=== PATIENT | female | born 1950 | race Caucasian/White ===

== ENCOUNTER 2022-12-05 15:19 | Inpatient (IN) | payer MEDICARE ==
[2022-12-05 16:54] LABS: #Basophils 0.1 10x3/uL (0.0-0.2); #Eosinphils 0.3 10x3/uL (0.0-0.5); #Monocytes 0.9 10x3/uL (0.0-1.1); #Neutrophils 8.3 10x3/uL (1.5-8.4); %Basophils 0.8 % (0.0-2.0); %Eosinophils 2.8 % (0.0-6.0); %Lymphocytes 16.1 % (18.0-47.0); Hematocrit 29.7 % (34.9-44.5); Hemoglobin 9.2 g/dL (12.0-15.5); Mean Corpuscular Hemoglobin 29.2 pg (27.0-33.0); Mean Corpuscular Volume 94.3 fl (81.6-98.3); Mean Platelet Volume 9.6 fl (7.4-10.4); Platelet Count 448 10x3/uL (150-450); RBC Distribution Width 14.9 % (11.5-14.5); Red Blood Cell (RBC) Count 3.15 10x6/uL (3.90-5.03); White Blood Cell (WBC) Count 11.6 10x3/uL (3.5-10.5)
[2022-12-05] MEDS ORDERED: Vancomycin 1 GM VIAL ONE (17:05)
[2022-12-05] MEDS ORDERED: Cefepime 2 GM VIAL ONE (17:05)
[2022-12-05] MEDS ORDERED: hydrALAZINE 20 MG/ML VIAL ONE (17:05)
[2022-12-05] MEDS ORDERED: Vancomycin HCl 500 MG VIAL ONE (17:06)
[2022-12-05 17:11] LABS: Anion Gap 21 mmol/L (10-20); BUN (Urea Nitrogen) 92 mg/dL (9.8-20.1); Calc. Creatinine Clearance 0 mL/min (70-130); Calcium 9.4 mg/dL (7.8-10.44); Carbon Dioxide 13 mmol/L (23-31); Chloride 111 mmol/L (98-107); Estimated GFR 5; Glucose 159 mg/dL (83-110); Potassium 4.8 mmol/L (3.5-5.1); Sodium 140 mmol/L (136-145)
[2022-12-05] MEDS ORDERED: Vancomycin 1.5 GRAM/300 ML BAG 1.5 GM in Premix Bag 1 BAG IVPB SCH (17:15)
[2022-12-05] MEDS ORDERED: Dextrose 5% in Water 1,000 ML IV PRN (17:31)
[2022-12-05] MEDS ORDERED: HumaLOG 300 UNITS/3 ML VIAL SC PRN (17:31)
[2022-12-05] MEDS ORDERED: Dextrose 50% Abboject 50 ML SYRINGE SLOW IVP PRN (17:31)
[2022-12-05] MEDS ORDERED: Glucagon 1 MG/ML KIT IM PRN (17:31)
[2022-12-05] MEDS ORDERED: Morphine 4 MG/ML VIAL ONE (18:35)
[2022-12-05] MEDS ORDERED: Morphine 2 MG/ML VIAL ONE (18:35)
[2022-12-05 22:26] VITALS: BMI 33.0
[2022-12-05] MEDS: metroNIDAZOLE 500 MG in Premix Bag 1 BAG IVPB SCH (22:54)
[2022-12-05] MEDS: Heparin 5,000 UNITS/ML VIAL SC SCH (22:55)
[2022-12-05] MEDS: hydrALAZINE 20 MG/ML VIAL SLOW IVP PRN (22:55)
[2022-12-05] MEDS: Morphine 4 MG/ML VIAL SLOW IVP PRN (23:27)
[2022-12-05] MEDS ORDERED: Vancomycin Dose by Levels Sliding Scale (Wt 71-99) FS SCH (23:45)
[2022-12-06] MEDS: Ondansetron PF 4 MG/2 ML Vial IVP PRN ×3 (00:19→14:21)
[2022-12-06] MEDS: Acetaminophen 325 MG TAB PO PRN ×2 (00:26→08:29)
[2022-12-06 04:18] LABS: #Basophils 0.1 10x3/uL (0.0-0.2); #Eosinphils 0.2 10x3/uL (0.0-0.5); #Monocytes 0.9 10x3/uL (0.0-1.1); #Neutrophils 9.4 10x3/uL (1.5-8.4); %Basophils 0.6 % (0.0-2.0); %Eosinophils 1.9 % (0.0-6.0); %Monocytes 6.9 % (0.0-10.0); Hematocrit 28.5 % (34.9-44.5); Hemoglobin 8.7 g/dL (12.0-15.5); Mean Corpuscular HGB CONC 30.5 g/dL (32.0-36.0); Platelet Count 425 10x3/uL (150-450); White Blood Cell (WBC) Count 12.6 10x3/uL (3.5-10.5)
[2022-12-06 04:35] LABS: Anion Gap 21 mmol/L (10-20); BUN (Urea Nitrogen) 94 mg/dL (9.8-20.1); Calc. Creatinine Clearance 9 mL/min (70-130); Calcium 9.2 mg/dL (7.8-10.44); Carbon Dioxide 12 mmol/L (23-31); Chloride 112 mmol/L (98-107); Estimated GFR 5; Glucose 142 mg/dL (83-110); Potassium 5.4 mmol/L (3.5-5.1); Sodium 140 mmol/L (136-145)
[2022-12-06] MEDS: metroNIDAZOLE 500 MG in Premix Bag 1 BAG IVPB SCH ×3 (05:54→23:58)
[2022-12-06] MEDS: Carvedilol 12.5 MG TAB PO SCH ×2 (08:29→18:11)
[2022-12-06] MEDS: Heparin 5,000 UNITS/ML VIAL SC SCH ×2 (08:52→21:20)
[2022-12-06] MEDS ORDERED: Heparin 10,000 UNITS/ 10 ML VIAL FS PRN (10:32)
[2022-12-06] MEDS ORDERED: Vancomycin Diaylsis Sliding Scale (Wt 71-99) FS SCH (10:45)
[2022-12-06] MEDS ORDERED: Tuberculin PPD 0.1 ML VIAL I-DERMAL SCH ×2 (11:00→23:59)
[2022-12-06 11:20] LABS: Vancomycin, Random 20.5 ug/mL (See Comment)
[2022-12-06] MEDS: EPOETIN ALFA-EPBX (ESRD) 4,000 UNITS/ML VIAL SC SCH (14:22)
[2022-12-06] MEDS ORDERED: EPINEPHrine 1 MG/ML AMP ONE (14:49)
[2022-12-06] MEDS ORDERED: Bupivacaine 0.25% HCL 30 ML VIAL ONE (14:49)
[2022-12-06] MEDS ORDERED: Lidocaine 1% PF 5 ML VIAL ONE (15:14)
[2022-12-06] MEDS ORDERED: Ondansetron PF 4 MG/2 ML Vial ONE ×2 (15:14→17:00)
[2022-12-06] MEDS ORDERED: fentaNYL 50 mcg/mL 1 mL Vial ONE (15:14)
[2022-12-06] MEDS ORDERED: PROPOFOL 20 ML ONE (15:14)
[2022-12-06] MEDS ORDERED: Dexamethasone 20 MG/5 ML VIAL ONE (15:14)
[2022-12-06] MEDS ORDERED: Rocuronium Bromide 10 MG/ML (10ML VIAL) ONE (15:35)
[2022-12-06] MEDS ORDERED: SUGAMMADEX SODIUM 200 MG/2 ML VIAL ONE (15:37)
[2022-12-06] MEDS: hydrALAZINE 20 MG/ML VIAL SLOW IVP PRN (17:49)
[2022-12-06] MEDS ORDERED: Vancomycin HCl 500 MG in Sodium Chloride 0.9% 100 ML IVPB SCH (18:00)
[2022-12-06] MEDS: Cefepime 1 GM in Sodium Chloride 0.9% 100 ML IVPB SCH (18:14)
[2022-12-06] MEDS: Promethazine HCl 12.5 MG in Sodium Chloride 0.9% 50 ML IVPB PRN (21:21)
[2022-12-07 03:47] LABS: #Basophils 0.1 10x3/uL (0.0-0.2); #Monocytes 1.1 10x3/uL (0.0-1.1); #Neutrophils 10.7 10x3/uL (1.5-8.4); %Basophils 0.7 % (0.0-2.0); %Eosinophils 0.1 % (0.0-6.0); %Lymphocytes 12.9 % (18.0-47.0); %Monocytes 7.8 % (0.0-10.0); Hematocrit 28.6 % (34.9-44.5); Hemoglobin 8.5 g/dL (12.0-15.5); Mean Corpuscular HGB CONC 29.7 g/dL (32.0-36.0); Mean Corpuscular Hemoglobin 28.8 pg (27.0-33.0); Mean Corpuscular Volume 96.9 fl (81.6-98.3); Mean Platelet Volume 9.8 fl (7.4-10.4); Platelet Count 406 10x3/uL (150-450); RBC Distribution Width 15.2 % (11.5-14.5); Red Blood Cell (RBC) Count 2.95 10x6/uL (3.90-5.03); White Blood Cell (WBC) Count 13.8 10x3/uL (3.5-10.5)
[2022-12-07 04:09] LABS: Anion Gap 22 mmol/L (10-20); BUN (Urea Nitrogen) 96 mg/dL (9.8-20.1); Calc. Creatinine Clearance 8 mL/min (70-130); Calcium 9.2 mg/dL (7.8-10.44); Carbon Dioxide 11 mmol/L (23-31); Chloride 113 mmol/L (98-107); Estimated GFR 5; Glucose 122 mg/dL (83-110); Potassium 5.6 mmol/L (3.5-5.1); Sodium 140 mmol/L (136-145)
[2022-12-07 04:37] LABS: Hep B Surface AG-Rflx Sendout Negative (Negative); Hepatitis B Core Total Negative (Negative); Hepatitis B Surface AB-Sendout Non Reactive (.)
[2022-12-07] MEDS: Promethazine HCl 12.5 MG in Sodium Chloride 0.9% 50 ML IVPB PRN (06:21)
[2022-12-07] MEDS: metroNIDAZOLE 500 MG in Premix Bag 1 BAG IVPB SCH ×3 (06:40→22:20)
[2022-12-07 07:57] LABS: Vancomycin, Random 23.1 ug/mL (See Comment)
[2022-12-07] MEDS: Heparin 5,000 UNITS/ML VIAL SC SCH ×2 (10:24→20:37)
[2022-12-07] MEDS: Carvedilol 12.5 MG TAB PO SCH ×2 (10:24→15:42)
[2022-12-07] MEDS: hydrALAZINE 25 MG TAB PO SCH ×2 (15:42→20:36)
[2022-12-07] MEDS: traMADol HCl 50 MG TAB PO PRN (16:58)
[2022-12-07] MEDS: Cefepime 1 GM in Sodium Chloride 0.9% 100 ML IVPB SCH (17:15)
[2022-12-07] MEDS: Acetaminophen 325 MG TAB PO PRN (22:25)
[2022-12-08] MEDS: Ondansetron PF 4 MG/2 ML Vial IVP PRN ×2 (00:20→08:32)
[2022-12-08 04:33] LABS: #Basophils 0.1 10x3/uL (0.0-0.2); #Eosinphils 0.3 10x3/uL (0.0-0.5); #Monocytes 1.1 10x3/uL (0.0-1.1); #Neutrophils 9.2 10x3/uL (1.5-8.4); %Eosinophils 2.1 % (0.0-6.0); %Lymphocytes 13.3 % (18.0-47.0); %Monocytes 9.1 % (0.0-10.0); %Neutrophils 73.9 % (40.0-75.0); Hemoglobin 8.7 g/dL (12.0-15.5); Mean Corpuscular HGB CONC 31.1 g/dL (32.0-36.0); Mean Corpuscular Hemoglobin 29.8 pg (27.0-33.0); Mean Corpuscular Volume 95.9 fl (81.6-98.3); Mean Platelet Volume 9.8 fl (7.4-10.4); Platelet Count 340 10x3/uL (150-450); RBC Distribution Width 15.4 % (11.5-14.5); Red Blood Cell (RBC) Count 2.92 10x6/uL (3.90-5.03); White Blood Cell (WBC) Count 12.4 10x3/uL (3.5-10.5)
[2022-12-08 04:55] LABS: Anion Gap 21 mmol/L (10-20); BUN (Urea Nitrogen) 85 mg/dL (9.8-20.1); Calc. Creatinine Clearance 9 mL/min (70-130); Calcium 8.9 mg/dL (7.8-10.44); Carbon Dioxide 14 mmol/L (23-31); Chloride 108 mmol/L (98-107); Estimated GFR 5; Glucose 157 mg/dL (83-110); Potassium 4.8 mmol/L (3.5-5.1); Sodium 138 mmol/L (136-145)
[2022-12-08] MEDS: metroNIDAZOLE 500 MG in Premix Bag 1 BAG IVPB SCH ×3 (05:51→22:15)
[2022-12-08 07:04] LABS: Vancomycin, Random 18.4 ug/mL (See Comment)
[2022-12-08] MEDS: Carvedilol 12.5 MG TAB PO SCH ×2 (08:04→17:15)
[2022-12-08] MEDS: hydrALAZINE 25 MG TAB PO SCH ×3 (09:04→22:16)
[2022-12-08] MEDS ORDERED: READ PPD TEST SITE PO SCH (11:00)
[2022-12-08] MEDS: traMADol HCl 50 MG TAB PO PRN ×2 (14:19→22:36)
[2022-12-08] MEDS ORDERED: Vancomycin HCl 750 MG in Sodium Chloride 0.9% 250 ML 250 ML IVPB SCH (17:00)
[2022-12-08] MEDS: Cefepime 1 GM in Sodium Chloride 0.9% 100 ML IVPB SCH (17:15)
[2022-12-08] MEDS ORDERED: Vancomycin HCl 750 MG VIAL ONE (17:54)
[2022-12-08] MEDS: Heparin 5,000 UNITS/ML VIAL SC SCH ×2 (22:17→22:18)
[2022-12-08] MEDS: READ PPD TEST SITE PO SCH (23:59)
[2022-12-09 05:12] LABS: #Basophils 0.1 10x3/uL (0.0-0.2); #Eosinphils 0.5 10x3/uL (0.0-0.5); #Monocytes 1.4 10x3/uL (0.0-1.1); #Neutrophils 7.1 10x3/uL (1.5-8.4); %Eosinophils 4.5 % (0.0-6.0); %Lymphocytes 16.1 % (18.0-47.0); %Monocytes 12.4 % (0.0-10.0); %Neutrophils 65.3 % (40.0-75.0); Hematocrit 25.3 % (34.9-44.5); Mean Corpuscular HGB CONC 31.6 g/dL (32.0-36.0); Mean Corpuscular Volume 94.8 fl (81.6-98.3); Mean Platelet Volume 10.1 fl (7.4-10.4); Platelet Count 343 10x3/uL (150-450); Red Blood Cell (RBC) Count 2.67 10x6/uL (3.90-5.03); White Blood Cell (WBC) Count 10.9 10x3/uL (3.5-10.5)
[2022-12-09 05:26] LABS: Anion Gap 17 mmol/L (10-20); BUN (Urea Nitrogen) 52 mg/dL (9.8-20.1); Calc. Creatinine Clearance 12 mL/min (70-130); Calcium 8.5 mg/dL (7.8-10.44); Carbon Dioxide 20 mmol/L (23-31); Chloride 105 mmol/L (98-107); Estimated GFR 7; Glucose 115 mg/dL (83-110); Potassium 4.1 mmol/L (3.5-5.1); Sodium 138 mmol/L (136-145)
[2022-12-09] MEDS: metroNIDAZOLE 500 MG in Premix Bag 1 BAG IVPB SCH ×3 (05:57→22:53)
[2022-12-09] MEDS: Morphine 4 MG/ML VIAL SLOW IVP PRN ×2 (06:03→15:38)
[2022-12-09] MEDS: Ondansetron PF 4 MG/2 ML Vial IVP PRN ×2 (06:04→15:38)
[2022-12-09 06:11] LABS: Vancomycin, Random 24.5 ug/mL (See Comment)
[2022-12-09] MEDS: Carvedilol 12.5 MG TAB PO SCH ×2 (08:30→17:00)
[2022-12-09] MEDS: hydrALAZINE 25 MG TAB PO SCH ×3 (08:30→22:54)
[2022-12-09] MEDS: Heparin 5,000 UNITS/ML VIAL SC SCH ×2 (09:00→22:53)
[2022-12-09] MEDS: Cefepime 1 GM in Sodium Chloride 0.9% 100 ML IVPB SCH (17:00)
[2022-12-09] MEDS: Ondansetron ODT 4 MG TAB PO PRN (22:55)
[2022-12-09] MEDS: traMADol HCl 50 MG TAB PO PRN (22:55)
[2022-12-10] MEDS: READ PPD TEST SITE PO SCH ×2 (00:14→23:54)
[2022-12-10 04:35] LABS: #Basophils 0.1 10x3/uL (0.0-0.2); #Eosinphils 0.3 10x3/uL (0.0-0.5); #Monocytes 1.3 10x3/uL (0.0-1.1); #Neutrophils 7.3 10x3/uL (1.5-8.4); %Basophils 0.7 % (0.0-2.0); %Eosinophils 2.8 % (0.0-6.0); %Lymphocytes 15.3 % (18.0-47.0); %Monocytes 12.6 % (0.0-10.0); Hematocrit 27.8 % (34.9-44.5); Hemoglobin 8.3 g/dL (12.0-15.5); Mean Corpuscular HGB CONC 29.9 g/dL (32.0-36.0); Mean Corpuscular Hemoglobin 28.7 pg (27.0-33.0); Mean Corpuscular Volume 96.2 fl (81.6-98.3); Mean Platelet Volume 9.9 fl (7.4-10.4); Platelet Count 356 10x3/uL (150-450); RBC Distribution Width 14.7 % (11.5-14.5); Red Blood Cell (RBC) Count 2.89 10x6/uL (3.90-5.03); White Blood Cell (WBC) Count 10.7 10x3/uL (3.5-10.5)
[2022-12-10 04:41] LABS: Anion Gap 16 mmol/L (10-20); BUN (Urea Nitrogen) 29 mg/dL (9.8-20.1); Calc. Creatinine Clearance 18 mL/min (70-130); Calcium 8.8 mg/dL (7.8-10.44); Carbon Dioxide 24 mmol/L (23-31); Chloride 100 mmol/L (98-107); Estimated GFR 12; Glucose 106 mg/dL (83-110); Potassium 3.7 mmol/L (3.5-5.1); Sodium 136 mmol/L (136-145)
[2022-12-10] MEDS: Ondansetron ODT 4 MG TAB PO PRN ×2 (06:12→11:21)
[2022-12-10] MEDS: metroNIDAZOLE 500 MG in Premix Bag 1 BAG IVPB SCH ×3 (06:12→21:32)
[2022-12-10] MEDS: Morphine 4 MG/ML VIAL SLOW IVP PRN ×3 (06:12→15:25)
[2022-12-10 08:08] LABS: Vancomycin, Random 16.9 ug/mL (See Comment)
[2022-12-10] MEDS: Heparin 5,000 UNITS/ML VIAL SC SCH ×2 (08:41→20:33)
[2022-12-10] MEDS: Ondansetron PF 4 MG/2 ML Vial IVP PRN (08:49)
[2022-12-10] MEDS: hydrALAZINE 25 MG TAB PO SCH ×3 (08:56→20:32)
[2022-12-10] MEDS: traMADol HCl 50 MG TAB PO PRN ×2 (08:57→23:37)
[2022-12-10] MEDS: Carvedilol 12.5 MG TAB PO SCH ×2 (08:57→16:01)
[2022-12-10] MEDS: Promethazine HCl 12.5 MG in Sodium Chloride 0.9% 50 ML IVPB PRN (12:44)
[2022-12-10] MEDS ORDERED: hydrALAZINE 25 MG TAB PO SCH (13:30)
[2022-12-10] MEDS ORDERED: cloNIDine 0.1 MG TAB PO PRN (13:31)
[2022-12-10] MEDS ORDERED: NIFEdipine XL 30 MG TAB PO SCH (13:45)
[2022-12-10] MEDS: Cefepime 1 GM in Sodium Chloride 0.9% 100 ML IVPB SCH (17:48)
[2022-12-11] MEDS: metroNIDAZOLE 500 MG in Premix Bag 1 BAG IVPB SCH ×3 (05:51→21:28)
[2022-12-11] MEDS: traMADol HCl 50 MG TAB PO PRN ×2 (06:04→14:18)
[2022-12-11 07:58] LABS: Vancomycin, Random 14.9 ug/mL (See Comment)
[2022-12-11] MEDS: Carvedilol 12.5 MG TAB PO SCH ×2 (08:43→16:27)
[2022-12-11] MEDS: NIFEdipine XL 30 MG TAB PO SCH (08:43)
[2022-12-11] MEDS: hydrALAZINE 25 MG TAB PO SCH ×3 (08:44→21:29)
[2022-12-11] MEDS: Morphine 4 MG/ML VIAL SLOW IVP PRN ×2 (08:52→16:38)
[2022-12-11] MEDS: Ondansetron ODT 4 MG TAB PO PRN (08:52)
[2022-12-11] MEDS: Acetaminophen 325 MG TAB PO PRN (08:53)
[2022-12-11] MEDS: Heparin 5,000 UNITS/ML VIAL SC SCH ×2 (08:55→21:28)
[2022-12-11] MEDS: Cefepime 1 GM in Sodium Chloride 0.9% 100 ML IVPB SCH (16:25)
[2022-12-11] MEDS ORDERED: Vancomycin HCl 1 GM in Sodium Chloride 0.9% 250 ML 250 ML IVPB SCH (17:00)
[2022-12-12] MEDS: Acetaminophen 325 MG TAB PO PRN ×2 (00:32→09:09)
[2022-12-12] MEDS: READ PPD TEST SITE PO SCH (00:33)
[2022-12-12] MEDS: metroNIDAZOLE 500 MG in Premix Bag 1 BAG IVPB SCH ×3 (05:55→22:08)
[2022-12-12] MEDS: Heparin 5,000 UNITS/ML VIAL SC SCH ×2 (07:59→22:05)
[2022-12-12] MEDS: Carvedilol 12.5 MG TAB PO SCH ×2 (09:05→17:24)
[2022-12-12] MEDS: hydrALAZINE 25 MG TAB PO SCH ×3 (09:06→22:06)
[2022-12-12] MEDS: NIFEdipine XL 30 MG TAB PO SCH (09:06)
[2022-12-12] MEDS ORDERED: PROPOFOL 20 ML ONE (10:31)
[2022-12-12] MEDS ORDERED: Bupivacaine PF 0.5% 30 ML VIAL ONE (10:32)
[2022-12-12] MEDS ORDERED: Lidocaine 2% MPF 10 ML AMP (For Epidural Use) ONE (10:32)
[2022-12-12] MEDS ORDERED: Lidocaine 2% PF 5 ML VIAL ONE (10:34)
[2022-12-12] MEDS ORDERED: Ondansetron PF 4 MG/2 ML Vial ONE (10:34)
[2022-12-12] MEDS ORDERED: Dexamethasone 4 mg/ml Vial ONE (10:34)
[2022-12-12 10:56] LABS: Potassium 3.7 mmol/L (3.5-5.1)
[2022-12-12] MEDS ORDERED: Midazolam HCl 2 mg/2 ml Vial ONE (11:30)
[2022-12-12] MEDS: traMADol HCl 50 MG TAB PO PRN ×2 (14:49→22:05)
[2022-12-12] MEDS: Cefepime 1 GM in Sodium Chloride 0.9% 100 ML IVPB SCH (17:24)
[2022-12-12] MEDS: HumaLOG 300 UNITS/3 ML VIAL SC PRN (18:18)
[2022-12-13] MEDS: READ PPD TEST SITE PO SCH (00:26)
[2022-12-13] MEDS: Acetaminophen 325 MG TAB PO PRN ×2 (00:42→20:34)
[2022-12-13] MEDS: metroNIDAZOLE 500 MG in Premix Bag 1 BAG IVPB SCH ×3 (07:26→20:35)
[2022-12-13 07:39] LABS: Vancomycin, Random 19.3 ug/mL (See Comment)
[2022-12-13 08:13] LABS: Hematocrit 27.8 % (34.9-44.5); Hemoglobin 8.5 g/dL (12.0-15.5); Mean Corpuscular HGB CONC 30.6 g/dL (32.0-36.0); Mean Corpuscular Hemoglobin 29.7 pg (27.0-33.0); Mean Corpuscular Volume 97.2 fl (81.6-98.3); Mean Platelet Volume 9.7 fl (7.4-10.4); Platelet Count 325 10x3/uL (150-450); RBC Distribution Width 14.3 % (11.5-14.5); Red Blood Cell (RBC) Count 2.86 10x6/uL (3.90-5.03); White Blood Cell (WBC) Count 12.2 10x3/uL (3.5-10.5)
[2022-12-13 08:25] LABS: ALT (SGPT) Less than 7 U/L (8-55); AST (SGOT) 19 U/L (5-34); Albumin 2.9 g/dL (3.4-4.8); Alkaline Phosphatase 90 U/L (40-110); Anion Gap 15 mmol/L (10-20); BUN (Urea Nitrogen) 27 mg/dL (9.8-20.1); Bilirubin, Total 0.2 mg/dL (0.2-1.2); Calc. Creatinine Clearance 13 mL/min (70-130); Calcium 8.9 mg/dL (7.8-10.44); Carbon Dioxide 23 mmol/L (23-31); Chloride 103 mmol/L (98-107); Estimated GFR 8; Globulin 3.3 g/dL (2.4-3.5); Glucose 163 mg/dL (83-110); Potassium 3.5 mmol/L (3.5-5.1); Protein, Total 6.2 g/dL (5.8-8.1); Sodium 137 mmol/L (136-145)
[2022-12-13] MEDS: traMADol HCl 50 MG TAB PO PRN ×2 (13:19→23:20)
[2022-12-13] MEDS: Heparin 5,000 UNITS/ML VIAL SC SCH ×2 (13:33→20:33)
[2022-12-13] MEDS: EPOETIN ALFA-EPBX (ESRD) 4,000 UNITS/ML VIAL SC SCH (13:33)
[2022-12-13] MEDS: Carvedilol 12.5 MG TAB PO SCH ×2 (13:33→16:37)
[2022-12-13] MEDS: NIFEdipine XL 30 MG TAB PO SCH (13:34)
[2022-12-13] MEDS: hydrALAZINE 25 MG TAB PO SCH ×2 (13:34→20:33)
[2022-12-13] MEDS: Cefepime 1 GM in Sodium Chloride 0.9% 100 ML IVPB SCH (16:37)
[2022-12-13] MEDS: HumaLOG 300 UNITS/3 ML VIAL SC PRN (16:37)
[2022-12-13] MEDS: Morphine 4 MG/ML VIAL SLOW IVP PRN (23:25)
[2022-12-14] MEDS: metroNIDAZOLE 500 MG in Premix Bag 1 BAG IVPB SCH (06:08)
[2022-12-14] MEDS: Acetaminophen 325 MG TAB PO PRN ×2 (06:16→12:27)
[2022-12-14] MEDS: traMADol HCl 50 MG TAB PO PRN (07:48)
[2022-12-14] MEDS: hydrALAZINE 25 MG TAB PO SCH (07:49)
[2022-12-14] MEDS: Carvedilol 12.5 MG TAB PO SCH (07:49)
[2022-12-14] MEDS: NIFEdipine XL 30 MG TAB PO SCH (07:50)
[2022-12-14] MEDS: Heparin 5,000 UNITS/ML VIAL SC SCH (07:50)
[2022-12-14] MEDS ORDERED: Vancomycin HCl 750 MG in Sodium Chloride 0.9% 250 ML 250 ML IVPB SCH (09:00)
[2022-12-14] MEDS ORDERED: Cephalexin 500 MG CAP PO SCH (12:00)
[2022-12-14 13:29] VITALS: BP 156/67; TEMP 98.7
== END 2022-12-14 13:45 | DRG 617 ==
LOC: CSHERS 15:19 → CSHTELE 20:38
PROVIDERS: ADMIT Family Medicine; ATTEND Internal Medicine
PROC: 0JH63XZ Insertion of Tunneled Vascular Access Device into Chest Subcutaneous Tissue and Fascia, Percutaneous Approach (ICD-10-PCS; principal; 2022-12-06)
PROC: 05HM33Z Insertion of Infusion Device into Right Internal Jugular Vein, Percutaneous Approach (ICD-10-PCS; 2022-12-06)
PROC: B5131ZA Fluoroscopy of Right Jugular Veins using Low Osmolar Contrast, Guidance (ICD-10-PCS; 2022-12-06)
PROC: 0Y6Q0Z1 Detachment at Left 1st Toe, High, Open Approach (ICD-10-PCS; 2022-12-12)
DX: E11.69 Type 2 diabetes mellitus with other specified complication (principal); E87.20 Acidosis, unspecified; I12.0 Hypertensive chronic kidney disease with stage 5 chronic kidney disease or end stage renal disease; L03.116 Cellulitis of left lower limb; M86.8X7 Other osteomyelitis, ankle and foot; N18.6 End stage renal disease; E11.628 Type 2 diabetes mellitus with other skin complications; E11.22 Type 2 diabetes mellitus with diabetic chronic kidney disease; E88.09 Other disorders of plasma-protein metabolism, not elsewhere classified; E87.5 Hyperkalemia; Z88.0 Allergy status to penicillin; Z79.01 Long term (current) use of anticoagulants; Z79.899 Other long term (current) drug therapy; E11.51 Type 2 diabetes mellitus with diabetic peripheral angiopathy without gangrene
CPT/HCPCS: 36415; 36416; 71045; 80048; 80053; 80202; 84132; 85025; 85027; 86140; 86580; 86704; 86706; 87040; 87340; 88305; 88311; 90935; 93926; 94760; 96374; 96375; 97139; C1752; G0257; J0171; J0360; J0692; J1100; J1642; J1644; J2001; J2250; J2270; J2272; J2405; J2550; J2704; J3010; J3370; J3490; J7050; Q0162; Q5105; S0020

== ENCOUNTER 2023-01-05 15:19 | Emergency (ER) | payer MEDICARE ==
[2023-01-05] MEDS ORDERED: Lidocaine 1% w/Epinephrine 1:200K 30 ML VIAL ONE (16:14)
== END 2023-01-05 17:07 | disposition home or self-care (01) ==
LOC: CSHERS 15:19
DX: L02.211 Cutaneous abscess of abdominal wall (principal); E11.22 Type 2 diabetes mellitus with diabetic chronic kidney disease; N18.9 Chronic kidney disease, unspecified
CPT/HCPCS: 10060

== ENCOUNTER 2023-01-11 09:46 | Inpatient (IN) | payer MEDICARE ==
[2023-01-11] MEDS ORDERED: Cefepime 2 GM VIAL ONE (10:37)
[2023-01-11] MEDS ORDERED: Ondansetron PF 4 MG/2 ML Vial ONE (10:37)
[2023-01-11] MEDS ORDERED: Morphine 10 MG/ML VIAL ONE (10:37)
[2023-01-11] MEDS ORDERED: VANCOMYCIN 2 GRAM/400 ML BAG 2 GM in Premix Bag 1 BAG IVPB SCH (11:00)
[2023-01-11 11:24] LABS: #Basophils 0.1 10x3/uL (0.0-0.2); #Eosinphils 0.3 10x3/uL (0.0-0.5); #Monocytes 1.4 10x3/uL (0.0-1.1); #Neutrophils 12.1 10x3/uL (1.5-8.4); %Basophils 0.8 % (0.0-2.0); %Lymphocytes 14.3 % (18.0-47.0); %Monocytes 8.6 % (0.0-10.0); %Neutrophils 73.1 % (40.0-75.0); Hematocrit 27.5 % (34.9-44.5); Hemoglobin 8.5 g/dL (12.0-15.5); Mean Corpuscular HGB CONC 30.9 g/dL (32.0-36.0); Mean Corpuscular Hemoglobin 29.3 pg (27.0-33.0); Mean Corpuscular Volume 94.8 fl (81.6-98.3); Mean Platelet Volume 10.2 fl (7.4-10.4); Platelet Count 401 10x3/uL (150-450); RBC Distribution Width 13.6 % (11.5-14.5); White Blood Cell (WBC) Count 16.5 10x3/uL (3.5-10.5)
[2023-01-11 11:30] LABS: ALT (SGPT) Less than 7 U/L (8-55); AST (SGOT) 16 U/L (5-34); Albumin 3.3 g/dL (3.4-4.8); Alkaline Phosphatase 117 U/L (40-110); Anion Gap 20 mmol/L (10-20); BUN (Urea Nitrogen) 19 mg/dL (9.8-20.1); Bilirubin, Total 0.3 mg/dL (0.2-1.2); Calc. Creatinine Clearance 0 mL/min (70-130); Calcium 9.3 mg/dL (7.8-10.44); Carbon Dioxide 22 mmol/L (23-31); Chloride 97 mmol/L (98-107); Estimated GFR 10; Glucose 191 mg/dL (83-110); Protein, Total 7.3 g/dL (5.8-8.1); Sodium 135 mmol/L (136-145)
[2023-01-11] MEDS ORDERED: Morphine 4 MG/ML VIAL ONE (14:19)
[2023-01-11 14:26] LABS: Lactic Acid 1.7 mmol/L (0.5-2.2)
[2023-01-11] MEDS ORDERED: Dextrose 50% Abboject 50 ML SYRINGE SLOW IVP PRN (15:10)
[2023-01-11] MEDS ORDERED: Dextrose 5% in Water 1,000 ML IV PRN (15:10)
[2023-01-11] MEDS ORDERED: Glucagon 1 MG/ML KIT IM PRN (15:10)
[2023-01-11] MEDS ORDERED: Acetaminophen 650 MG Suppository PR PRN (15:11)
[2023-01-11] MEDS ORDERED: Acetaminophen 325 MG TAB PO PRN (15:11)
[2023-01-11] MEDS ORDERED: Ondansetron ODT 4 MG TAB PO PRN (15:11)
[2023-01-11] MEDS ORDERED: Ondansetron PF 4 MG/2 ML Vial IVP PRN (15:11)
[2023-01-11] MEDS ORDERED: Vancomycin 1 GM in Premix Bag 1 BAG IVPB SCH (15:15)
[2023-01-11 16:34] LABS: Phosphorus 2.9 mg/dL (2.3-4.7)
[2023-01-11] MEDS: HYDROcodone/Acetaminophen 5/325 mg Tablet PO PRN (18:52)
[2023-01-11] MEDS: Morphine 2 MG/ML VIAL SLOW IVP PRN (19:55)
[2023-01-11] MEDS: hydrALAZINE 25 MG TAB PO SCH (19:59)
[2023-01-11] MEDS: Atorvastatin Calcium 10 MG TAB PO SCH (19:59)
[2023-01-11] MEDS ORDERED: fentaNYL 50 mcg/mL 1 mL Vial SLOW IVP SCH (21:15)
[2023-01-11 23:34] VITALS: BMI 29.0
[2023-01-12] MEDS: Morphine 2 MG/ML VIAL SLOW IVP PRN ×6 (00:36→22:03)
[2023-01-12] MEDS ORDERED: Vancomycin Diaylsis Sliding Scale (Wt 71-99) FS SCH (00:45)
[2023-01-12] MEDS: HYDROcodone/Acetaminophen 5/325 mg Tablet PO PRN ×2 (03:02→08:49)
[2023-01-12 05:34] LABS: Anion Gap 18 mmol/L (10-20); BUN (Urea Nitrogen) 25 mg/dL (9.8-20.1); Calc. Creatinine Clearance 12 mL/min (70-130); Calcium 8.8 mg/dL (7.8-10.44); Carbon Dioxide 21 mmol/L (23-31); Chloride 99 mmol/L (98-107); Estimated GFR 8; Glucose 130 mg/dL (83-110); Magnesium 2.2 mg/dL (1.6-2.6); Potassium 3.5 mmol/L (3.5-5.1); Sodium 134 mmol/L (136-145)
[2023-01-12 05:37] LABS: #Basophils 0.1 10x3/uL (0.0-0.2); #Eosinphils 0.6 10x3/uL (0.0-0.5); #Monocytes 1.3 10x3/uL (0.0-1.1); #Neutrophils 9.3 10x3/uL (1.5-8.4); %Basophils 0.6 % (0.0-2.0); %Lymphocytes 19.8 % (18.0-47.0); %Monocytes 9.1 % (0.0-10.0); %Neutrophils 65.4 % (40.0-75.0); Hematocrit 24.7 % (34.9-44.5); Hemoglobin 7.4 g/dL (12.0-15.5); Mean Corpuscular Hemoglobin 28.7 pg (27.0-33.0); Mean Corpuscular Volume 95.7 fl (81.6-98.3); Mean Platelet Volume 9.9 fl (7.4-10.4); Platelet Count 369 10x3/uL (150-450); RBC Distribution Width 13.9 % (11.5-14.5); Red Blood Cell (RBC) Count 2.58 10x6/uL (3.90-5.03); White Blood Cell (WBC) Count 14.2 10x3/uL (3.5-10.5)
[2023-01-12 07:31] LABS: Vancomycin, Random 29.6 ug/mL (See Comment)
[2023-01-12] MEDS: EPOETIN ALFA-EPBX (ESRD) 4,000 UNITS/ML VIAL SC SCH (08:48)
[2023-01-12] MEDS ORDERED: Heparin 10,000 UNITS/ 10 ML VIAL SLOW IVP PRN (13:15)
[2023-01-12] MEDS: hydrALAZINE 25 MG TAB PO SCH ×2 (13:24→20:54)
[2023-01-12] MEDS: HYDROcodone/Acetaminophen 7.5/325 mg Tablet PO PRN ×2 (14:54→20:50)
[2023-01-12] MEDS: Cefepime 1 GM in Sodium Chloride 0.9% 100 ML IVPB SCH (17:30)
[2023-01-12] MEDS: NIFEdipine XL 30 MG ER.TAB PO SCH (17:47)
[2023-01-12] MEDS: Carvedilol 12.5 MG TAB PO SCH (17:47)
[2023-01-12] MEDS: HumuLIN 70/30 100 Unit/ ml 10 ml Vial SC SCH (20:53)
[2023-01-12] MEDS: HumaLOG 300 UNITS/3 ML VIAL SC PRN (20:54)
[2023-01-12] MEDS: Atorvastatin Calcium 10 MG TAB PO SCH (20:54)
[2023-01-13] MEDS: Morphine 2 MG/ML VIAL SLOW IVP PRN ×5 (02:00→21:06)
[2023-01-13] MEDS: HYDROcodone/Acetaminophen 7.5/325 mg Tablet PO PRN ×4 (03:50→22:45)
[2023-01-13 05:29] LABS: Anion Gap 17 mmol/L (10-20); BUN (Urea Nitrogen) 17 mg/dL (9.8-20.1); Calc. Creatinine Clearance 16 mL/min (70-130); Calcium 9.1 mg/dL (7.8-10.44); Carbon Dioxide 24 mmol/L (23-31); Chloride 99 mmol/L (98-107); Estimated GFR 11; Glucose 105 mg/dL (83-110); Potassium 3.6 mmol/L (3.5-5.1); Sodium 136 mmol/L (136-145)
[2023-01-13 05:31] LABS: Hematocrit 27.4 % (34.9-44.5); Hemoglobin 8.3 g/dL (12.0-15.5); Mean Corpuscular HGB CONC 30.3 g/dL (32.0-36.0); Mean Corpuscular Hemoglobin 28.9 pg (27.0-33.0); Mean Corpuscular Volume 95.5 fl (81.6-98.3); Mean Platelet Volume 10.2 fl (7.4-10.4); Platelet Count 385 10x3/uL (150-450); RBC Distribution Width 13.6 % (11.5-14.5); Red Blood Cell (RBC) Count 2.87 10x6/uL (3.90-5.03); White Blood Cell (WBC) Count 16.8 10x3/uL (3.5-10.5)
[2023-01-13] MEDS: hydrALAZINE 25 MG TAB PO SCH ×2 (09:11→21:06)
[2023-01-13] MEDS: Carvedilol 12.5 MG TAB PO SCH (09:12)
[2023-01-13] MEDS: NIFEdipine XL 30 MG ER.TAB PO SCH (09:12)
[2023-01-13] MEDS: HumuLIN 70/30 100 Unit/ ml 10 ml Vial SC SCH ×2 (09:13→21:06)
[2023-01-13] MEDS ORDERED: Polyethylene Glycol 3350 17 GM Packet PO PRN (12:13)
[2023-01-13] MEDS ORDERED: Docusate 100 MG CAP PO PRN (12:13)
[2023-01-13] MEDS: HumaLOG 300 UNITS/3 ML VIAL SC PRN ×2 (12:45→17:50)
[2023-01-13] MEDS: Cefepime 1 GM in Sodium Chloride 0.9% 100 ML IVPB SCH (15:51)
[2023-01-13] MEDS: Atorvastatin Calcium 10 MG TAB PO SCH (21:06)
[2023-01-14] MEDS: Morphine 2 MG/ML VIAL SLOW IVP PRN ×3 (01:01→10:13)
[2023-01-14 04:00] LABS: Hematocrit 26.9 % (34.9-44.5); Mean Corpuscular HGB CONC 29.7 g/dL (32.0-36.0); Mean Corpuscular Hemoglobin 28.9 pg (27.0-33.0); Mean Corpuscular Volume 97.1 fl (81.6-98.3); Mean Platelet Volume 10.2 fl (7.4-10.4); Platelet Count 394 10x3/uL (150-450); RBC Distribution Width 13.9 % (11.5-14.5); Red Blood Cell (RBC) Count 2.77 10x6/uL (3.90-5.03); White Blood Cell (WBC) Count 13.7 10x3/uL (3.5-10.5)
[2023-01-14] MEDS: HYDROcodone/Acetaminophen 7.5/325 mg Tablet PO PRN (05:36)
[2023-01-14] MEDS: Levothyroxine Sodium 75 MCG TAB PO SCH (05:37)
[2023-01-14] MEDS: HumaLOG 300 UNITS/3 ML VIAL SC PRN ×3 (05:43→21:55)
[2023-01-14] MEDS ORDERED: Acetaminophen 325 MG TAB PO PRN (07:59)
[2023-01-14] MEDS ORDERED: HYDROcodone/Acetaminophen 7.5/325 mg Tablet PO PRN (07:59)
[2023-01-14] MEDS: HumuLIN 70/30 100 Unit/ ml 10 ml Vial SC SCH ×2 (10:12→21:55)
[2023-01-14] MEDS: hydrALAZINE 25 MG TAB PO SCH ×2 (10:13→21:54)
[2023-01-14] MEDS: Furosemide 40 MG TAB PO SCH (10:14)
[2023-01-14] MEDS: NIFEdipine XL 30 MG ER.TAB PO SCH (10:14)
[2023-01-14] MEDS: Carvedilol 12.5 MG TAB PO SCH (10:14)
[2023-01-14] MEDS ORDERED: Polyethylene Glycol 3350 17 GM Packet PO SCH (11:00)
[2023-01-14] MEDS ORDERED: Docusate 100 MG CAP PO SCH (11:00)
[2023-01-14] MEDS: HYDROcodone/Acetaminophen 10/325 mg Tablet PO PRN ×3 (12:40→21:53)
[2023-01-14] MEDS: Cefepime 1 GM in Sodium Chloride 0.9% 100 ML IVPB SCH (15:00)
[2023-01-14] MEDS: Atorvastatin Calcium 10 MG TAB PO SCH (21:54)
[2023-01-15] MEDS: HYDROcodone/Acetaminophen 10/325 mg Tablet PO PRN ×3 (02:12→21:59)
[2023-01-15] MEDS: Levothyroxine Sodium 75 MCG TAB PO SCH (06:56)
[2023-01-15 07:31] LABS: Vancomycin, Random 18.3 ug/mL (See Comment)
[2023-01-15] MEDS: HumuLIN 70/30 100 Unit/ ml 10 ml Vial SC SCH ×2 (08:56→21:48)
[2023-01-15] MEDS: Carvedilol 12.5 MG TAB PO SCH (09:04)
[2023-01-15] MEDS: Furosemide 40 MG TAB PO SCH (09:09)
[2023-01-15] MEDS: hydrALAZINE 25 MG TAB PO SCH ×2 (09:11→21:48)
[2023-01-15] MEDS: NIFEdipine XL 30 MG ER.TAB PO SCH ×2 (09:12→14:09)
[2023-01-15] MEDS ORDERED: Naloxegol 12.5 MG TAB PO SCH (11:00)
[2023-01-15 12:03] LABS: HBSAg Index 0.31 S/CO (0-0.99); Hep B Surf Ag Non-Reactive S/CO (NonReactive)
[2023-01-15] MEDS: Cefepime 1 GM in Sodium Chloride 0.9% 100 ML IVPB SCH (14:10)
[2023-01-15 15:19] LABS: HBSAB Concentration Less than 8.00 mIU/mL; Hep B Core Total Ab Non-Reactive (NonReactive); Hep B Core Total Index 0.17 S/CO (0-0.79); Hep B Surf AB Non-Reactive (NonReactive); Hep C IgG Ab Non-Reactive S/CO (NonReactive); Hep C Index 0.16 S/CO (0-0.79)
[2023-01-15] MEDS: Morphine 2 MG/ML VIAL SLOW IVP PRN (16:52)
[2023-01-15] MEDS ORDERED: Vancomycin HCl 750 MG in Sodium Chloride 0.9% 250 ML 250 ML IVPB SCH (17:00)
[2023-01-15] MEDS: Atorvastatin Calcium 10 MG TAB PO SCH (21:47)
[2023-01-16] MEDS: HYDROcodone/Acetaminophen 10/325 mg Tablet PO PRN ×6 (02:12→23:31)
[2023-01-16 04:56] LABS: Anion Gap 17 mmol/L (10-20); BUN (Urea Nitrogen) 20 mg/dL (9.8-20.1); Calc. Creatinine Clearance 14 mL/min (70-130); Calcium 9.6 mg/dL (7.8-10.44); Carbon Dioxide 23 mmol/L (23-31); Chloride 100 mmol/L (98-107); Estimated GFR 9; Glucose 91 mg/dL (83-110); Potassium 3.5 mmol/L (3.5-5.1); Sodium 136 mmol/L (136-145)
[2023-01-16 05:00] LABS: Hematocrit 27.1 % (34.9-44.5); Hemoglobin 8.2 g/dL (12.0-15.5); Mean Corpuscular HGB CONC 30.3 g/dL (32.0-36.0); Mean Corpuscular Volume 95.8 fl (81.6-98.3); Mean Platelet Volume 9.8 fl (7.4-10.4); Platelet Count 453 10x3/uL (150-450); RBC Distribution Width 14.2 % (11.5-14.5); Red Blood Cell (RBC) Count 2.83 10x6/uL (3.90-5.03); White Blood Cell (WBC) Count 12.6 10x3/uL (3.5-10.5)
[2023-01-16] MEDS: Levothyroxine Sodium 75 MCG TAB PO SCH (06:09)
[2023-01-16] MEDS: Carvedilol 12.5 MG TAB PO SCH (08:38)
[2023-01-16] MEDS: Furosemide 40 MG TAB PO SCH (08:38)
[2023-01-16] MEDS: NIFEdipine XL 30 MG ER.TAB PO SCH (08:38)
[2023-01-16] MEDS: hydrALAZINE 25 MG TAB PO SCH ×2 (08:38→21:48)
[2023-01-16] MEDS: HumuLIN 70/30 100 Unit/ ml 10 ml Vial SC SCH ×2 (08:39→21:53)
[2023-01-16] MEDS: Morphine 2 MG/ML VIAL SLOW IVP PRN ×3 (13:04→21:49)
[2023-01-16] MEDS: Cefepime 1 GM in Sodium Chloride 0.9% 100 ML IVPB SCH (15:08)
[2023-01-16] MEDS: HumaLOG 300 UNITS/3 ML VIAL SC PRN (17:28)
[2023-01-16] MEDS: Atorvastatin Calcium 10 MG TAB PO SCH (21:49)
[2023-01-17] MEDS: Morphine 2 MG/ML VIAL SLOW IVP PRN ×5 (01:38→19:45)
[2023-01-17] MEDS: HYDROcodone/Acetaminophen 10/325 mg Tablet PO PRN ×4 (03:45→22:50)
[2023-01-17] MEDS: Levothyroxine Sodium 75 MCG TAB PO SCH (05:37)
[2023-01-17 05:51] LABS: #Basophils 0.1 10x3/uL (0.0-0.2); #Eosinphils 0.7 10x3/uL (0.0-0.5); #Monocytes 1.3 10x3/uL (0.0-1.1); %Basophils 0.8 % (0.0-2.0); %Eosinophils 5.6 % (0.0-6.0); %Lymphocytes 24.4 % (18.0-47.0); %Monocytes 10.8 % (0.0-10.0); %Neutrophils 56.9 % (40.0-75.0); Hematocrit 28.8 % (34.9-44.5); Hemoglobin 8.6 g/dL (12.0-15.5); Mean Corpuscular HGB CONC 29.9 g/dL (32.0-36.0); Mean Corpuscular Hemoglobin 28.4 pg (27.0-33.0); Mean Platelet Volume 9.8 fl (7.4-10.4); Platelet Count 511 10x3/uL (150-450); RBC Distribution Width 14.5 % (11.5-14.5); Red Blood Cell (RBC) Count 3.03 10x6/uL (3.90-5.03); White Blood Cell (WBC) Count 12.2 10x3/uL (3.5-10.5)
[2023-01-17 06:11] LABS: Anion Gap 21 mmol/L (10-20); BUN (Urea Nitrogen) 31 mg/dL (9.8-20.1); BUN/Creatinine Ratio 4.72; Calc. Creatinine Clearance 10 mL/min (70-130); Carbon Dioxide 21 mmol/L (23-31); Chloride 99 mmol/L (98-107); Potassium 3.9 mmol/L (3.5-5.1); Sodium 137 mmol/L (136-145)
[2023-01-17 06:12] LABS: Albumin 3.2 g/dL (3.4-4.8); Calcium 9.6 mg/dL (7.8-10.44); Estimated GFR 6; Glucose 104 mg/dL (83-110); Phosphorus 4.9 mg/dL (2.3-4.7)
[2023-01-17 07:38] LABS: Vancomycin, Random 21.1 ug/mL (See Comment)
[2023-01-17] MEDS: hydrALAZINE 25 MG TAB PO SCH ×2 (08:45→20:17)
[2023-01-17] MEDS: HumuLIN 70/30 100 Unit/ ml 10 ml Vial SC SCH ×2 (08:45→20:19)
[2023-01-17] MEDS: Carvedilol 12.5 MG TAB PO SCH (08:45)
[2023-01-17] MEDS: NIFEdipine XL 30 MG ER.TAB PO SCH (08:45)
[2023-01-17] MEDS ORDERED: Furosemide 40 MG TAB PO SCH ×2 (09:00→09:30)
[2023-01-17] MEDS: Furosemide 40 MG TAB PO SCH (09:32)
[2023-01-17] MEDS: Cefepime 1 GM in Sodium Chloride 0.9% 100 ML IVPB SCH (14:35)
[2023-01-17] MEDS ORDERED: Vancomycin HCl 250 MG, Admixture Fee 1 EACH in Sodium Chloride 0.9% 100 ML IVPB SCH (17:00)
[2023-01-17] MEDS: HumaLOG 300 UNITS/3 ML VIAL SC PRN (18:37)
[2023-01-17] MEDS: Atorvastatin Calcium 10 MG TAB PO SCH (20:17)
[2023-01-18] MEDS: Morphine 2 MG/ML VIAL SLOW IVP PRN ×4 (00:30→23:54)
[2023-01-18] MEDS: HYDROcodone/Acetaminophen 10/325 mg Tablet PO PRN ×4 (03:14→20:41)
[2023-01-18 05:06] LABS: #Basophils 0.1 10x3/uL (0.0-0.2); #Eosinphils 0.7 10x3/uL (0.0-0.5); #Monocytes 1.5 10x3/uL (0.0-1.1); #Neutrophils 7.8 10x3/uL (1.5-8.4); %Eosinophils 5.4 % (0.0-6.0); %Monocytes 11.3 % (0.0-10.0); %Neutrophils 57.6 % (40.0-75.0); Hematocrit 31.1 % (34.9-44.5); Hemoglobin 9.4 g/dL (12.0-15.5); Mean Corpuscular HGB CONC 30.2 g/dL (32.0-36.0); Mean Corpuscular Hemoglobin 28.7 pg (27.0-33.0); Mean Corpuscular Volume 95.1 fl (81.6-98.3); Mean Platelet Volume 9.9 fl (7.4-10.4); Platelet Count 443 10x3/uL (150-450); RBC Distribution Width 14.3 % (11.5-14.5); Red Blood Cell (RBC) Count 3.27 10x6/uL (3.90-5.03); White Blood Cell (WBC) Count 13.5 10x3/uL (3.5-10.5)
[2023-01-18] MEDS: Levothyroxine Sodium 75 MCG TAB PO SCH (06:18)
[2023-01-18] MEDS: hydrALAZINE 25 MG TAB PO SCH ×2 (09:30→20:41)
[2023-01-18] MEDS: Furosemide 40 MG TAB PO SCH (09:30)
[2023-01-18] MEDS: Carvedilol 12.5 MG TAB PO SCH (09:30)
[2023-01-18] MEDS: NIFEdipine XL 30 MG ER.TAB PO SCH (09:31)
[2023-01-18] MEDS: HumuLIN 70/30 100 Unit/ ml 10 ml Vial SC SCH ×2 (09:42→20:30)
[2023-01-18] MEDS: Cefepime 1 GM in Sodium Chloride 0.9% 100 ML IVPB SCH (15:45)
[2023-01-18] MEDS: Atorvastatin Calcium 10 MG TAB PO SCH (20:41)
[2023-01-19] MEDS: HYDROcodone/Acetaminophen 10/325 mg Tablet PO PRN ×4 (04:03→18:18)
[2023-01-19] MEDS: Levothyroxine Sodium 75 MCG TAB PO SCH (05:05)
[2023-01-19 05:57] LABS: #Basophils 0.1 10x3/uL (0.0-0.2); #Eosinphils 0.6 10x3/uL (0.0-0.5); #Monocytes 1.5 10x3/uL (0.0-1.1); #Neutrophils 7.4 10x3/uL (1.5-8.4); %Basophils 0.7 % (0.0-2.0); %Eosinophils 4.7 % (0.0-6.0); %Lymphocytes 20.5 % (18.0-47.0); %Monocytes 12.2 % (0.0-10.0); %Neutrophils 60.6 % (40.0-75.0); Hematocrit 28.7 % (34.9-44.5); Hemoglobin 8.8 g/dL (12.0-15.5); Mean Corpuscular HGB CONC 30.7 g/dL (32.0-36.0); Mean Corpuscular Hemoglobin 28.9 pg (27.0-33.0); Mean Corpuscular Volume 94.4 fl (81.6-98.3); Mean Platelet Volume 9.7 fl (7.4-10.4); Platelet Count 430 10x3/uL (150-450); RBC Distribution Width 14.6 % (11.5-14.5); Red Blood Cell (RBC) Count 3.04 10x6/uL (3.90-5.03); White Blood Cell (WBC) Count 12.2 10x3/uL (3.5-10.5)
[2023-01-19 06:09] LABS: Albumin 3.4 g/dL (3.4-4.8); Anion Gap 19 mmol/L (10-20); BUN (Urea Nitrogen) 34 mg/dL (9.8-20.1); BUN/Creatinine Ratio 4.72; Calc. Creatinine Clearance 9 mL/min (70-130); Calcium 10.1 mg/dL (7.8-10.44); Carbon Dioxide 20 mmol/L (23-31); Chloride 98 mmol/L (98-107); Estimated GFR 6; Glucose 123 mg/dL (83-110); Potassium 4.3 mmol/L (3.5-5.1); Sodium 133 mmol/L (136-145)
[2023-01-19 07:09] LABS: Vancomycin, Random 18.2 ug/mL (See Comment)
[2023-01-19] MEDS: Sevelamer Carbonate 800 MG TAB PO SCH ×3 (08:08→16:51)
[2023-01-19] MEDS: NIFEdipine XL 30 MG ER.TAB PO SCH (08:08)
[2023-01-19] MEDS: hydrALAZINE 25 MG TAB PO SCH (08:08)
[2023-01-19] MEDS: HumuLIN 70/30 100 Unit/ ml 10 ml Vial SC SCH (08:09)
[2023-01-19] MEDS: Carvedilol 12.5 MG TAB PO SCH (08:09)
[2023-01-19] MEDS: EPOETIN ALFA-EPBX (ESRD) 4,000 UNITS/ML VIAL SC SCH (11:51)
[2023-01-19] MEDS: Morphine 2 MG/ML VIAL SLOW IVP PRN (11:51)
[2023-01-19] MEDS: Cefepime 1 GM in Sodium Chloride 0.9% 100 ML IVPB SCH (15:14)
[2023-01-19] MEDS ORDERED: Vancomycin HCl 750 MG in Sodium Chloride 0.9% 250 ML 250 ML IVPB SCH (17:00)
[2023-01-19 17:33] VITALS: BP 134/60; TEMP 97.8
== END 2023-01-19 19:55 | DRG 500 ==
LOC: CSHERS 09:46 → CSHERHOLD 13:05 → CSHTELE 18:59
PROVIDERS: ADMIT Internal Medicine; ATTEND Internal Medicine
PROC: 3E03329 Introduction of Other Anti-infective into Peripheral Vein, Percutaneous Approach (ICD-10-PCS; principal; 2023-01-11)
PROC: 5A1D70Z Performance of Urinary Filtration, Intermittent, Less than 6 Hours Per Day (ICD-10-PCS; 2023-01-11)
PROC: 0JDR0ZZ Extraction of Left Foot Subcutaneous Tissue and Fascia, Open Approach (ICD-10-PCS; 2023-01-16)
DX: T87.44 Infection of amputation stump, left lower extremity (principal); A41.9 Sepsis, unspecified organism; N18.6 End stage renal disease; E11.52 Type 2 diabetes mellitus with diabetic peripheral angiopathy with gangrene; I96 Gangrene, not elsewhere classified; E87.1 Hypo-osmolality and hyponatremia; I12.0 Hypertensive chronic kidney disease with stage 5 chronic kidney disease or end stage renal disease; M86.8X7 Other osteomyelitis, ankle and foot; L03.311 Cellulitis of abdominal wall; E11.69 Type 2 diabetes mellitus with other specified complication; E11.22 Type 2 diabetes mellitus with diabetic chronic kidney disease; K59.00 Constipation, unspecified; K80.20 Calculus of gallbladder without cholecystitis without obstruction; K44.9 Diaphragmatic hernia without obstruction or gangrene; D63.1 Anemia in chronic kidney disease; Z89.412 Acquired absence of left great toe; Z88.0 Allergy status to penicillin; Z79.4 Long term (current) use of insulin; Z79.899 Other long term (current) drug therapy; Y83.8 Other surgical procedures as the cause of abnormal reaction of the patient, or of later complication, without mention of misadventure at the time of the procedure; L03.032 Cellulitis of left toe; Z99.2 Dependence on renal dialysis; E87.5 Hyperkalemia; T87.54 Necrosis of amputation stump, left lower extremity
CPT/HCPCS: 36415; 36416; 74176; 80048; 80053; 80069; 80202; 83605; 83735; 84100; 85025; 85027; 86704; 87040; 90935; 93005; 93923; 94760; 96365; 96366; 96367; 96375; 96376; 97139; G0257; J0692; J1644; J1815; J2270; J2272; J2405; J3010; J3370; J3490; J7050; Q0162; Q5105